=== PATIENT | male | born 1945 | race Caucasian/White ===

== ENCOUNTER 2016-07-05 07:01 | Emergency (ER) | payer MEDICARE, OTHER ==
[2016-07-05] MEDS ORDERED: ONDANSETRON 4 MG/2 ML VIAL IVP STA (07:26)
[2016-07-05] MEDS ORDERED: SODIUM CHLORIDE 0.9% 1,000 ML IV ONE ×2 (07:26→09:51)
[2016-07-05] MEDS ORDERED: KETOROLAC 60 MG/2 ML VIAL IVP STA (07:26)
[2016-07-05] MEDS ORDERED: ONDANSETRON 4 MG/2 ML VIAL ONE (07:29)
[2016-07-05] MEDS ORDERED: KETOROLAC 30 MG/ML VIAL ONE (07:29)
== END 2016-07-05 10:32 | disposition home or self-care (01) ==
DX: E86.0 Dehydration (principal); K52.9 Noninfective gastroenteritis and colitis, unspecified; N20.0 Calculus of kidney; Z87.442 Personal history of urinary calculi; E78.00 Pure hypercholesterolemia, unspecified; Z86.73 Personal history of transient ischemic attack (TIA), and cerebral infarction without residual deficits; Z79.82 Long term (current) use of aspirin

== ENCOUNTER 2016-12-05 22:29 | Emergency (ER) | payer MEDICARE, OTHER ==
[2016-12-05] MEDS ORDERED: KETOROLAC 60 MG/2 ML VIAL IVP STA (22:49)
[2016-12-05] MEDS ORDERED: SODIUM CHLORIDE 0.9% 1,000 ML IV ONE (22:49)
[2016-12-05] MEDS ORDERED: PROMETHAZINE INJ 12.5 MG in SODIUM CHLORIDE 0.9% 50 ML IV STA (22:50)
--- NOTE | 2016-12-05 22:53 | ED Physician Documentation ---
History of Present Illness - Stated complaint Stated Complaint: R SIDE ABD PX - Chief complaint Chief Complaint: Abd Pain - Additonal information Additional information: hx from pt 71 male hx kidney stones sudden onset severe R flank/RUQ pain 46 kin [employer] no fever + nausea no vomit no diarrhea no dysuria or hematuria Review of Systems Constitutional: denies: Fever, Chills Cardiac: denies: Chest pain / pressure Respiratory: denies: Dyspnea, Cough GI: reports: Abdominal Pain, Nausea. denies: Vomiting, Diarrhea : denies: Dysuria, Hematuria Musculoskeletal: reports: Back pain Endocrine: denies: Easy bruising / bleeding Immunocompromised: denies: Immunocompromised PD PAST MEDICAL HISTORY - Past Medical History Cardiovascular: High cholesterol Neuro: CVA GI: Diverticulitis : Kidney stones - Past Surgical History Past Surgical History: Yes General: Colonoscopy - Present Medications Home Medications: Ambulatory Orders Medication Instructions Recorded Confirmed Aspirin 1 tab PO DAILY 07/05/16 12/05/16 Atorvastatin [Lipitor] 1 tab PO DAILY 07/05/16 12/05/16 Donepezil HCl 8 mg PO DAILY 07/05/16 12/05/16 Lamotrigine [Lamictal Odt] 1 tab PO DAILY 07/05/16 12/05/16 Omeprazole 1 tab PO DAILY 07/05/16 12/05/16 Vit C/E/Zinc/Lutein/Zeaxanthin 1 tab PO DAILY 07/05/16 12/05/16 [OcuvBigSwerve Eye Health Gummies] HYDROcod/ACETAM 5/325 [[place] 5/325] 1 ea PO Q6H PRN #15 tablet 12/06/16 Promethazine [Phenergan] 25 mg PO Q6H PRN #10 tablet 12/06/16 Tamsulosin [Flomax] 0.4 mg PO DAILY #7 capsule 12/06/16 - Allergies Allergies/Adverse Reactions: Allergies Allergy/AdvReac Type Severity Reaction Status Date / Time No Known Drug Allergies Allergy Verified 07/05/16 07:07 - Social History Does the pt smoke?: No Smoking Status: Never smoker Does the pt drink ETOH?: Yes Does the pt have substance abuse?: No - Immunizations Immunizations are current?: Yes PD ED PE NORMAL - Vitals Vital signs reviewed: Yes - Neck Neck: Supple, no meningeal sign - Cardiac Cardiac: RRR - Respiratory Respiratory: No respiratory distress, Clear bilaterally - Abdomen Abdomen: Soft, Other (palpation right abd and R flank does not change the pain, no ulsatile mass, non distended, no rebound or guarding) - Back Back: No CVA TTP (has flank pain but not worsened by percussion) - Extremities Extremities: No deformity - Neuro Neuro: Alert and oriented X 3 - Psych Psych: Normal mood Results - Vitals Vitals: Vital Signs - 24 hr 12/05/16 12/06/16 22:33 00:16 Temperature 36.3 C L Heart Rate 71 50 L Respiratory 18 14 Rate Blood Pressure 144/71 H 114/64 O2 Saturation 98 95 Oxygen O2 Source Room air - Labs Labs: Laboratory Tests 12/05/16 12/05/16 12/05/16 23:05 23:05 23:05 WBC 5.1 RBC 4.12 L Hgb 13.0 L Hct 38.4 L MCV 93.3 MCH 31.6 H MCHC 33.9 RDW 12.9 Plt Count 131 MPV 8.3 Neut # 2.1 Lymph # 2.2 [place] # 0.4 Eos # 0.3 Baso # 0.0 Absolute Nucleated RBC 0.00 Nucleated RBCs 0.0 Sodium 140 Potassium 3.5 Chloride 104 Carbon Dioxide 28 Anion Gap 8.0 BUN 20 Creatinine 1.2 Estimated GFR (MDRD) 60 L Glucose 119 H Calcium 9.1 Total Bilirubin 0.5 AST 33 ALT 26 Alkaline Phosphatase 52 Total Protein 6.4 L Albumin 3.9 Globulin 2.5 Albumin/Globulin Ratio 1.6 Lipase 51 Urine Color YELLOW Urine Clarity CLEAR Urine pH 6.0 Ur Specific [place] 1.015 Urine Protein NEGATIVE Urine Glucose (UA) NEGATIVE Urine Ketones NEGATIVE Urine Occult Blood LARGE H Urine Nitrite NEGATIVE Urine Bilirubin NEGATIVE Urine Urobilinogen 0.2 (NORMAL) Ur Leukocyte Esterase NEGATIVE Urine RBC TNTC H Urine WBC 0-3 Ur Squamous Epith Cells RARE Squamous Urine Bacteria None Seen Ur Microscopic Review INDICATED Urine Culture Comments NOT INDICATED - Rads (name of study) CT AP Radiology: See rad report (mildly obstructing 8 X 6 mm stone proximal right ureter, non obstructing stnes ismael kidneys, 8X7mm on left)) PD MEDICAL DECISION MAKING - ED course ED course: 8 mm stone but pain controlled and no urine infection will dc with urology referral Departure - Departure Disposition: 01 Home, Self Care Clinical Impression: Renal colic on right side Condition: Good Instructions: ED Stone Renal W Colic Follow-Up: Malachi Santa MD [Primary Care Provider] - Natalio Lara MD [Physician No Access] - Prescriptions: Tamsulosin [Flomax] 0.4 mg PO DAILY #7 capsule HYDROcod/ACETAM 5/325 [[place] 5/325] 1 ea PO Q6H PRN #15 tablet PRN Reason: Severe Pain Promethazine [Phenergan] 25 mg PO Q6H PRN #10 tablet PRN Reason: vomiting Comments: You have a large 8 mm stone in the right ureter. But there is not infection and the kidney is not completely obstructed So it is safe for you to go home with medication for pain and nausea I have provided the name and number for the urology group in [facility] - you should call to schedule follow up because this stone might not be able to be passed without surgery If you are worse at any time (fever, severe pain, not urinating, intractable vomiting) please come back to the ER
[2016-12-05] MEDS ORDERED: PROMETHAZINE 25 MG/1 ML VIAL ONE (23:06)
[2016-12-05] MEDS ORDERED: KETOROLAC 15 MG/ML VIAL ONE (23:06)
[2016-12-05 23:14] LABS: BASOPHILS % (AUTO) 0.9 %; EOSINOPHILS # (AUTO) 0.3 10^3/uL (0.0-0.7); HCT - HEMATOCRIT 38.4 % (42.0-52.0); LYMPHOCYTES # (AUTO) 2.2 10^3/uL (1.5-3.5); LYMPHOCYTES % (AUTO) 43.7 %; MEAN CORPUSCULAR HEMOGLOBIN 31.6 pg (27.0-31.0); MEAN CORPUSCULAR HGB CONC 33.9 g/dL (32.0-36.0); MEAN CORPUSCULAR VOLUME 93.3 fL (80.0-94.0); MEAN PLATELET VOLUME 8.3 fL (7.4-11.4); MONOCYTES # (AUTO) 0.4 10^3/uL (0.0-1.0); MONOCYTES % (AUTO) 7.9 %; NEUTROPHILS # (AUTO) 2.1 10^3/uL (1.5-6.6); NEUTROPHILS % (AUTO) 41.5 %; RED BLOOD COUNT 4.12 10^6/uL (4.70-6.10); RED CELL DISTRIBUTION WIDTH 12.9 % (12.0-15.0); UNCORRECTED WHITE BLOOD COUNT 5.1 x10^3/uL; WHITE BLOOD COUNT 5.1 x10^3/uL (4.8-10.8)
[2016-12-05 23:15] LABS: BILIRUBIN,URINE NEGATIVE (NEGATIVE); UA w/ MICROSCOPIC CHARGE YES
[2016-12-05 23:20] LABS: UR CULTURE IF IND NOT INDICATED; WBC,URINE 0-3 /HPF (0-3)
[2016-12-05 23:28] LABS: ALBUMIN/GLOBULIN RATIO 1.6 (1.0-2.2); BILIRUBIN,TOTAL 0.5 mg/dL (0.2-1.0); CALCIUM 9.1 mg/dL (8.5-10.3); CREATININE 1.2 mg/dL (0.6-1.2); POTASSIUM 3.5 mmol/L (3.5-5.0); TOTAL PROTEIN 6.4 g/dL (6.7-8.2)
--- NOTE | 2016-12-06 01:04 | CT Preliminary Report ---
Exam: CT Abdomen/Pelvis W/O IMPRESSION: 1. Mildly obstructing 8 x 6 mm stone in the proximal right ureter. 2. Nonobstructing 2 mm stone in the right kidney. Nonobstructing 8 x 7 mm stone in the left kidney. [facility] SITE ID: [id number]
--- NOTE | 2016-12-06 01:07 | CT Report ---
EXAM: CT ABDOMEN AND PELVIS (CT KUB) EXAM DATE: 12/06/2016 12:13 AM. CLINICAL HISTORY: R flank pain hx renal colic. COMPARISONS: 07/05/2016. TECHNIQUE: Routine axial helical CT imaging was performed through the abdomen and pelvis without IV c ontrast. Reconstructions: Coronal and sagittal. In accordance with CT protocol optimization, one or more of the following dose reduction techniques w ere utilized for this exam: automated exposure control, adjustment of mA and/or KV based on patient s ize, or use of iterative reconstructive technique. FINDINGS: Lung Bases: Mild bibasilar atelectasis. Heart size upper normal. Right Kidney/Ureter: Nonobstructing 2 mm stone in the right kidney. Mildly obstructing stone in the p roximal ureter measuring 8 x 6 mm. Left Kidney/Ureter: Nonobstructing 8 x 7 mm stone in the kidney. No ureteral stone or obstructive uro lang identified. Other Solid Organs: Noncontrast images of the solid organs are grossly unremarkable. Gallbladder/Bile Ducts: Unremarkable. Peritoneal Cavity: Moderate stool in the colon. Colonic diverticula without obvious diverticulitis. N o bowel obstruction seen. No free air or free fluid. No lymphadenopathy. Pelvic Organs: Bladder is unremarkable. Intravesicular protrusion of the prostate measuring 1.2 cm. Vasculature: Mild atherosclerosis. No aortic aneurysm. Other: Degenerative changes in the spine, especially in the facet joints. Spinal stenosis. IMPRESSION: 1. Mildly obstructing 8 x 6 mm stone in the proximal right ureter. 2. Nonobstructing 2 mm stone in the right kidney. Nonobstructing 8 x 7 mm stone in the left kidney. [facility] Referring Provider Line: [phone] SITE ID: [id number]
[2016-12-06] MEDS ORDERED: HYDROcod/ACET 5/325 Prepack 6 PO STA (01:40)
[2016-12-06 01:46] VITALS: BP 116/63
[2016-12-06] MEDS ORDERED: HYDROcod/ACET 5/325 Prepack 6 PO ONE (01:48)
== END 2016-12-06 02:01 | disposition home or self-care (01) ==
LOC: ED 22:29
DX: N20.2 Calculus of kidney with calculus of ureter (principal); Z79.82 Long term (current) use of aspirin; Z86.73 Personal history of transient ischemic attack (TIA), and cerebral infarction without residual deficits
CPT/HCPCS: 36415; 74176; 80053; 81001; 83690; 85025; 96374; 96375; 99283; 99284; J7040; 81003; 87086

== ENCOUNTER 2017-01-06 08:00 | Outpatient (CLI) | payer MEDICARE, OTHER ==
[2017-01-06 19:13] LABS: BILIRUBIN,URINE NEGATIVE (NEGATIVE); PH,URINE 5.5 PH (5.0-7.5)
[2017-01-06 19:23] LABS: UR CULTURE IF IND NOT INDICATED
== END 2017-01-06 08:01 | disposition home or self-care (01) ==
LOC: LAB.WCP 08:00
PROVIDERS: ATTEND Urology
DX: N20.0 Calculus of kidney (principal)
CPT/HCPCS: 81001; 87086

== ENCOUNTER 2017-01-20 11:50 | Outpatient (CLI) | payer MEDICARE, OTHER ==
[2017-01-20 19:19] LABS: BILIRUBIN,URINE NEGATIVE (NEGATIVE); PH,URINE 5.5 PH (5.0-7.5)
[2017-01-20 19:22] LABS: UA w/ MICROSCOPIC CHARGE YES
[2017-01-20 20:41] LABS: UR CULTURE IF IND NOT INDICATED
== END 2017-01-20 11:51 | disposition home or self-care (01) ==
LOC: LAB.WCP 11:50
PROVIDERS: ATTEND Urology
DX: N20.0 Calculus of kidney (principal)
CPT/HCPCS: 81001; 81003; 87086

== ENCOUNTER 2017-03-11 16:05 | Outpatient (CLI) | payer MEDICARE, OTHER | END 2017-03-11 16:06 | LOC: LAB.WCP 16:05 | PROVIDERS: ATTEND Family Medicine | DX: Z12.5 Encounter for screening for malignant neoplasm of prostate (principal) | CPT/HCPCS: 36415; G0103; 84153 ==

== ENCOUNTER 2017-07-01 07:44 | Outpatient (CLI) | payer MEDICARE, OTHER ==
[2017-07-01 13:04] LABS: ALBUMIN 4.2 g/dL (3.2-5.5); ALBUMIN/GLOBULIN RATIO 1.6 (1.0-2.2); ALKALINE PHOSPHATASE 44 IU/L (42-121); ALT ALANINE AMINOTRANSFERASE 21 IU/L (10-60); AST ASPARTATE AMINOTRANSFERASE 27 IU/L (10-42); BILIRUBIN,TOTAL 0.6 mg/dL (0.2-1.0); BUN - BLOOD UREA NITROGEN 17 mg/dL (6-20); CARBON DIOXIDE - CO2 25 mmol/L (21-32); CHLORIDE 106 mmol/L (101-111); CHOL/HDL RATIO 3.2 (<5.0); CHOLESTEROL 133 mg/dL; CREATININE 1.1 mg/dL (0.6-1.2); GFR - MDRD 66 (>89); GLUCOSE 95 mg/dL (70-100); HDL CHOLESTEROL 41 mg/dL; LDL CHOLESTEROL,CALCULATED 79 mg/dL; LDL/HDL RATIO 1.9 (<3.6); SODIUM 138 mmol/L (135-145); TOTAL PROTEIN 6.8 g/dL (6.7-8.2); VLDL CHOLESTEROL 13 mg/dL
== END 2017-07-01 07:45 | disposition home or self-care (01) ==
LOC: LAB.WCP 07:44
PROVIDERS: ATTEND Family Medicine
DX: E78.5 Hyperlipidemia, unspecified (principal)
CPT/HCPCS: 36415; 80053; 80061; 83721

== ENCOUNTER 2017-07-18 07:52 | Outpatient (CLI) | payer MEDICARE, OTHER ==
--- NOTE | 2017-07-18 11:10 | Ultrasound Report ---
AORTIC SCREENIN07/18/2017 HISTORY: Positive smoking history. COMPARISON: CT scan abdomen and pelvis 12/06/2016. TECHNIQUE: Real-time scanning by the sales relationship manager with saved static images reviewed. FINDINGS: Aorta measurements in cm: Proximal sagittal 2.3. Mid transverse 2 x 2.2. Distal transverse 1.6 x 1.9. Common iliac arteries measurements in cm: Right transverse 1 x 1.2. Left transverse 1.3 x 1.3. IMPRESSION: NO FINDINGS OF AN ABDOMINAL AORTIC ANEURYSM. TD: 07/18/2017 11:09 [facility]
== END 2017-07-18 07:53 | disposition home or self-care (01) ==
LOC: DI 07:52
PROVIDERS: ATTEND Family Medicine
DX: Z13.6 Encounter for screening for cardiovascular disorders (principal); Z87.891 Personal history of nicotine dependence
CPT/HCPCS: 76706

== ENCOUNTER 2018-03-09 11:19 | Outpatient (CLI) | payer MEDICARE, OTHER | END 2018-03-09 11:20 | disposition home or self-care (01) | LOC: LAB.WCP 11:19 | PROVIDERS: ATTEND Family Medicine | DX: E78.5 Hyperlipidemia, unspecified (principal) | CPT/HCPCS: 36415; 80053 ==

== ENCOUNTER 2018-03-12 08:00 | Outpatient (CLI) | payer MEDICARE, OTHER ==
[2018-03-12 13:39] LABS: ALBUMIN 4.1 g/dL (3.2-5.5); ALBUMIN/GLOBULIN RATIO 1.6 (1.0-2.2); BILIRUBIN,TOTAL 0.6 mg/dL (0.2-1.0); CALCIUM 9.1 mg/dL (8.5-10.3); TOTAL PROTEIN 6.7 g/dL (6.7-8.2)
== END 2018-03-12 23:59 | disposition home or self-care (01) ==
LOC: LAB.WCP 08:00
PROVIDERS: ATTEND Family Medicine
DX: E78.5 Hyperlipidemia, unspecified (principal)
CPT/HCPCS: 36415; 80053